=== PATIENT | male | born 2000 | race Hispanic/Latino ===

== ENCOUNTER 2024-12-27 05:48 | Day surgery (SDC) | payer OTHER ==
[2024-12-27] VITALS (14 sets, daily range): BP systolic 95–126; BP diastolic 46–79; PULSE 50–68; RESP 14–18; TEMP 96.8–97.9
[2024-12-27] MEDS: 0.9%NACL 1000ML 1,000 ML IV ONE (06:28)
[2024-12-27] MEDS ORDERED: LIDOCAINE HCL 1% 20 ML VIAL ONE (07:14)
== END 2024-12-27 08:27 | disposition home or self-care (01) ==
LOC: DAH 05:48
PROVIDERS: ATTEND Internal Medicine Gastroenterology
DX: K57.32 Diverticulitis of large intestine without perforation or abscess without bleeding (principal); K63.89 Other specified diseases of intestine; K57.30 Diverticulosis of large intestine without perforation or abscess without bleeding; E66.01 Morbid (severe) obesity due to excess calories; Z88.0 Allergy status to penicillin; Z88.1 Allergy status to other antibiotic agents; Z68.43 Body mass index [BMI] 50.0-59.9, adult; Z79.899 Other long term (current) drug therapy
CPT/HCPCS: 45380; J7030; J2704; A4620; A4215; A4223; A7002; A4222; A4221; A4663; A4606; J3490